=== PATIENT | male | born 1960 | race Caucasian/White ===

== ENCOUNTER 2016-07-23 15:22 | Emergency (ER) | payer OTHER ==
[~2016-07-23] VITALS: Ht 172.7 cm; Wt 71.2 kg
[2016-07-23] MEDS ORDERED: TOPR25TA PO (15:32)
[2016-07-23] MEDS ORDERED: LISI-538 PO (15:32)
[2016-07-23] MEDS ORDERED: NITR0.4S14 SL (15:32)
[2016-07-23] MEDS ORDERED: ATOR1TAB18 PO (15:32)
[2016-07-23] MEDS ORDERED: PLAV75TA38 PO (15:32)
[2016-07-23] MEDS ORDERED: MORPHINE 10 MG/ML 1ML VIAL IM ONE (15:45)
[2016-07-23] MEDS ORDERED: PERC5TAB6 PO (16:17)
--- NOTE | 2016-07-23 16:21 | REP ---
Clinical: Trauma. Pain. Technique: AP and lateral views of the right tibia / fibula. Findings: Distal lateral soft tissue swelling is appreciated along with presumed acute nondisplaced fracture of the distal fibular metaphysis. A small corticated bony density at the medial malleolus suggests possible old avulsion injury. Impression: Lateral swelling and suspected acute nondisplaced fracture of the distal fibular metaphysis. Small old avulsion fracture of the medial malleolus. Signed by Jose Varela MD 07/23/2016 04:13 P
[2016-07-23 16:27] VITALS: BP 132/62
== END 2016-07-23 16:57 | disposition home or self-care (01) ==
LOC: M ED 16:15
DX: S82.64XA Nondisplaced fracture of lateral malleolus of right fibula, initial encounter for closed fracture (principal); Z87.891 Personal history of nicotine dependence; W17.1XXA Fall into storm drain or manhole, initial encounter; Y92.138 Other place on military base as the place of occurrence of the external cause; Y93.A9 Activity, other involving cardiorespiratory exercise; Y99.1 Military activity